=== PATIENT | female | born 1975 | race Caucasian/White ===

== ENCOUNTER → 2017-07-25 12:46 | Outpatient (CLI) | payer OTHER, SELFPAY ==
--- NOTE | 2017-07-25 12:51 | RAD_ITS ---
STUDY: X-RAY - THORACIC SPINE REASON FOR EXAM: Female, 42 years old. Mid back pain. TECHNIQUE: 3 view(s) of the thoracic spine were obtained. COMPARISON: Comparison is made with prior study dated July 22, 2010. FINDINGS: Normal kyphosis of the thoracic spine. There is no substantial scoliosis. Normal thoracic vertebrae and endplates. Normal disc space heights. The soft tissue structures are unremarkable. Electrodes from a pain stimulator device are seen. The tip is at the T7-T8 level. RAD/Thoracic Spine 3 Views IMPRESSION: Normal x-ray examination of the thoracic spine. Stable examination. Electronically Signed: Oniel Dupont MD at 8:38 EDT Tel [phone], Service support ,
== END ==
PROVIDERS: Family Provider Internal Medicine; PCP Internal Medicine; Visit Provider Anesthesiology Pain Medicine
DX: M54.6 Pain in thoracic spine (principal)
CPT/HCPCS: 72072

== ENCOUNTER → 2018-06-26 09:38 | Outpatient (CLI) | payer OTHER, SELFPAY ==
--- NOTE | 2018-06-26 10:00 | RAD_ITS ---
STUDY: X-RAY - SACRUM/COCCYX REASON FOR EXAM: Female, 43 years old. Low back pain with left leg numbness TECHNIQUE: 4 view(s) of the sacrum and coccyx were obtained. COMPARISON: None. FINDINGS: Postsurgical changes at L5-S1. No evidence of acute fracture. No destructive osseous lesion. Normal alignment. Spinal stimulator device noted near the coccyx tip. RAD/Sacrum-Coccyx min 2 Views IMPRESSION: As above Electronically Signed: Blue Mckeon DO at 9:46 EST Tel , Service support ,
--- NOTE | 2018-06-26 10:00 | RAD_ITS ---
STUDY: X-RAY - LUMBAR SPINE REASON FOR EXAM: Female, 43 years old. Low back pain TECHNIQUE: 3 view(s) of the lumbar spine were obtained. COMPARISON: None FINDINGS: Normal lumbar lordosis. There is no substantial scoliosis. There is a normal alignment of the vertebrae. Postsurgical change at L5-S1 with posterior fusion hardware. Artificial intervertebral disc spacer. Remaining levels appear within normal limits. There is no demonstrated fracture. Spinal stimulator device The soft tissue structures are unremarkable. RAD/Lumbar Spine 2 or 3 Views IMPRESSION: L5-S1 degenerative disc disease with postsurgical changes and artificial intervertebral disc spacer. Electronically Signed: Blue Mckeon DO at 9:45 EST Tel , Service support ,
[2018-06-26 11:19] LABS: Amphetamine Urine VISTA NEGATIVE (<1000 ng/mL); Barbiturate Urine VISTA NEGATIVE (< 200 ng/mL); Benzodiazepine Urine VISTA NEGATIVE (< 200 ng/mL); Cocaine Urine VISTA NEGATIVE (< 300 ng/mL); Ecstacy Urine VISTA NEGATIVE (< 500 ng/mL); Methadone Urine VISTA NEGATIVE (< 300 ng/mL); PCP Urine VISTA NEGATIVE (< 25 ng/mL); THC Urine VISTA NEGATIVE (< 50 ng/mL); Vista UDS pH Range 5
== END ==
PROVIDERS: Family Provider Internal Medicine; PCP Internal Medicine; Referring Provider Anesthesiology Pain Medicine; Visit Provider Anesthesiology Pain Medicine
DX: F11.20 Opioid dependence, uncomplicated (principal); M54.5 Low back pain; M79.605 Pain in left leg; W19.XXXA Unspecified fall, initial encounter
CPT/HCPCS: 72100; 72220; 80307

== ENCOUNTER → 2019-03-21 12:33 | Outpatient (CLI) | payer OTHER, SELFPAY ==
[2019-03-21 13:41] LABS: Amphetamine Urine VISTA NEGATIVE (<1000 ng/mL); Barbiturate Urine VISTA NEGATIVE (< 200 ng/mL); Benzodiazepine Urine VISTA NEGATIVE (< 200 ng/mL); Cocaine Urine VISTA NEGATIVE (< 300 ng/mL); Ecstacy Urine VISTA NEGATIVE (< 500 ng/mL); Methadone Urine VISTA NEGATIVE (< 300 ng/mL); PCP Urine VISTA NEGATIVE (< 25 ng/mL); THC Urine VISTA NEGATIVE (< 50 ng/mL); Vista UDS pH Range 6
== END ==
LOC: PR 12:35 → LAB 12:46
PROVIDERS: Family Provider Internal Medicine; PCP Internal Medicine; Referring Provider Anesthesiology Pain Medicine; Visit Provider Anesthesiology Pain Medicine
DX: F11.20 Opioid dependence, uncomplicated (principal)
CPT/HCPCS: 80307

== ENCOUNTER → 2019-09-17 14:04 | Outpatient (CLI) | payer OTHER, SELFPAY ==
[2019-09-17 16:36] LABS: Amphetamine Urine VISTA NEGATIVE (<1000 ng/mL); Barbiturate Urine VISTA NEGATIVE (< 200 ng/mL); Benzodiazepine Urine VISTA NEGATIVE (< 200 ng/mL); Cocaine Urine VISTA NEGATIVE (< 300 ng/mL); Ecstacy Urine VISTA NEGATIVE (< 500 ng/mL); Methadone Urine VISTA NEGATIVE (< 300 ng/mL); PCP Urine VISTA NEGATIVE (< 25 ng/mL); THC Urine VISTA NEGATIVE (< 50 ng/mL); Vista UDS pH Range 6
== END ==
PROVIDERS: PCP Internal Medicine; Referring Provider Anesthesiology Pain Medicine; Visit Provider Anesthesiology Pain Medicine
DX: F11.20 Opioid dependence, uncomplicated (principal)
CPT/HCPCS: 80307

== ENCOUNTER 2020-09-04 14:20 | Day surgery (SDC) | payer OTHER, SELFPAY ==
[2020-09-02 08:28] VITALS: BMI 22.4
[2020-09-04] VITALS (10 sets, daily range): BP systolic 122–144; BP diastolic 84–94; PULSE 73–96; RESP 16–18; TEMP 37.2–37.9; O2SAT 98–100; BMI 22.4
[2020-09-04] MEDS: Lactated Ringers 1,000 ML 100 ML IV (15:02)
--- NOTE | 2020-09-04 15:37 | RAD_ITS ---
STUDY: X-RAY - LUMBAR SPINE REASON FOR EXAM: Female, 45 years old. DISCOGRAM TECHNIQUE: 3 view(s) of the lumbar spine were obtained. COMPARISON: 09/02/2020 FINDINGS: Fluoroscopy the lumbar spine was utilized during the discogram.. RAD/Lumbar Spine 2 or 3 Views IMPRESSION: Fluoroscopy during discogram. Electronically Signed: Finn Carranza MD at 12:12 EDT Tel , Service support ,
[2020-09-04] MEDS: Lidocaine 0.5% (50 ml) 50 ML Vial (15:51)
[2020-09-04] MEDS: Triamcinolone Acetonide 40 MG/ML Vial (15:51)
[2020-09-04] MEDS: Acetaminophen 325 MG Tablet PO (16:37)
[2020-09-04] MEDS: oxyCODONE 5 MG Tablet PO (16:37)
== END 2020-09-04 17:49 ==
LOC: SDC 14:22 → AC 14:24
PROVIDERS: PCP Internal Medicine; Visit Provider Anesthesiology Pain Medicine
PROC: 3E0S3BZ Introduction of Anesthetic Agent into Epidural Space, Percutaneous Approach (ICD-10-PCS; CPT 62290; principal; 2020-09-04 15:55)
DX: M51.36 Other intervertebral disc degeneration, lumbar region (principal); M51.37 Other intervertebral disc degeneration, lumbosacral region; M47.896 Other spondylosis, lumbar region; M47.818 Spondylosis without myelopathy or radiculopathy, sacral and sacrococcygeal region; I10 Essential (primary) hypertension; F17.210 Nicotine dependence, cigarettes, uncomplicated; Z79.899 Other long term (current) drug therapy
CPT/HCPCS: 62290 ×2; 72100; 76000; J7120

== ENCOUNTER 2020-11-20 10:06 | Day surgery (SDC) | payer OTHER, SELFPAY ==
[2020-10-07 10:11] VITALS: BMI 22.4
[2020-11-20] VITALS (9 sets, daily range): BP systolic 122–155; BP diastolic 85–111; PULSE 72–98; RESP 16; TEMP 35.9–36.5; O2SAT 96–100; BMI 23.1
[2020-11-20] MEDS: Lactated Ringers 1,000 ML 100 ML IV ×2 (10:37→12:33)
[2020-11-20] MEDS: Lidocaine 0.5% (50 ml) 50 ML Vial (11:30)
== END 2020-11-20 14:07 | disposition home or self-care (01) ==
LOC: SDC 10:06 → AC 10:07
PROVIDERS: PCP Internal Medicine; Referring Provider Anesthesiology Pain Medicine; Visit Provider Anesthesiology Pain Medicine
PROC: (CPT 63688; principal; 2020-11-20 11:40)
DX: Z45.42 Encounter for adjustment and management of neurostimulator (principal); M96.1 Postlaminectomy syndrome, not elsewhere classified; Y84.8 Other medical procedures as the cause of abnormal reaction of the patient, or of later complication, without mention of misadventure at the time of the procedure; M51.36 Other intervertebral disc degeneration, lumbar region; F17.200 Nicotine dependence, unspecified, uncomplicated; Z79.899 Other long term (current) drug therapy; F32.9 Major depressive disorder, single episode, unspecified; G25.81 Restless legs syndrome; M51.37 Other intervertebral disc degeneration, lumbosacral region; M46.1 Sacroiliitis, not elsewhere classified; M47.812 Spondylosis without myelopathy or radiculopathy, cervical region
CPT/HCPCS: 63688; 87426; C9803; J7120; J2405

== ENCOUNTER 2021-01-05 05:21 | Inpatient (IN) | payer OTHER, SELFPAY ==
[2020-10-07 10:11] VITALS: BMI 22.4
--- NOTE | 2020-12-24 09:58 | EKG12_ITS ---
Test Reason : PREOP Blood Pressure : / mmHG Vent. Rate : 080 BPM Atrial Rate : 080 BPM P-R Int : 170 ms QRS Dur : 078 ms QT Int : 412 ms P-R-T Axes : 077 054 054 degrees QTc Int : 475 ms Normal sinus rhythm Normal ECG Confirmed by BRANDON MCKENZIE, RIZWAN ([id number]), photographic editor LIANA TERESA ([id number]) on 12/28/2020 8:24:45 AM Referred By: Jesus Agee Confirmed By:RIZWAN TAYLOR MD
[2020-12-28 09:58] LABS: Absolute Lymphocyte Count 2.43 X10^3/uL (0.83-4.51); Absolute Neutrophil Count 5.2 X10^3/uL (2.0-7.7); Basophil# 0.07 X10^3/uL; Basophil% 0.9 % (0-1); Eosinophil# 0.13 X10^3/uL; Eosinophils% 1.6 % (0-5); Hematocrit 40.3 % (37-47); Hemoglobin 12.8 g/dL (12.0-15.0); Lymphocyte # 2.43 X10^3/ul (0.83-4.51); Lymphocyte % 29.7 % (19-41); Mean Corp Hgb Conc 31.8 g/dL (32-36); Mean Corpuscular Hgb 31.5 pg (27.0-32.0); Mean Corpuscular Volume 99.3 fL (81-99); Mean Platelet Vol. 9.5 fl (6.2-12.0); Monocyte# 0.36 X10^3/uL; Monocyte% 4.4 % (0-10); NRBC Flagged by Analyzer 0 % (0-5); Neutrophil # 5.16 X10^3/uL (2.7-7.7); Neutrophil % 63.2 % (47-70); Platelet Count 414 K/mm3 (150-450); RBC Distribution Width CV 13.1 % (11.6-14.6); RBC Distribution Width SD 48.4 fl (35.1-43.9); Red Blood Count 4.06 M/mm3 (4.2-5.4); White Blood Count 8.2 K/mm3 (4.4-11.0)
[2020-12-28 10:07] LABS: Prothrombin Time (Protime)PT. 12.3 SECONDS (11.7-14.9)
[2020-12-28 10:11] LABS: Partial Thromboplast Time 30.7 Seconds (24.1-36.2)
[2020-12-28 10:47] LABS: Anion Gap 5 (5-15); BUN 6 mg/dL (7-18); BUN/Creat Ratio 10.8 RATIO (10-20); Calcium,Total 8.9 mg/dL (8.5-10.1); Chloride 109 mmol/L (98-107); Creatinine, Serum 0.55 mg/dL (0.55-1.02); EST Glomerular Filtration Rate 126 mL/min (>60); Est Glom Filt Rate - Afr Amer 152 mL/min (>60); Glucose 84 mg/dL (74-106); Potassium 3.7 mmol/L (3.5-5.1); Sodium Level 142 mmol/L (136-145)
[2020-12-28 10:49] LABS: AST(SGOT) 14 U/L (15-37); Alanine Aminotransfer ALT/SGPT 24 U/L (13-56); Albumin, Serum 3.9 g/dL (3.2-5.0); Alkaline Phosphatase 72 U/L (45-117); Bilirubin, Direct 0.09 mg/dL (0.00-0.30); Globulin 3.4 g/dL (2.2-4.2); Magnesium 1.9 mg/dL (1.6-2.6); Protein, Total 7.3 g/dL (6.4-8.2)
[2020-12-28 11:22] LABS: HIV - WCH Non-Reactive (Nonreactive); Hepatitis B Surface Antibody Reactive; Hepatitis C Antibody Non-Reactive (Nonreactive)
[2020-12-29 07:59] LABS: Hepatitis A AB, Total Negative (Negative)
--- NOTE | 2021-01-04 11:17 | HP.PCM_ITS ---
History and Physical Date of Admission: 01/05/21 [facility] [id number] [phone] OFFICE VISITDate of Service: 09/28/20 MR#:[id number]:[id number]: ALAINA CLEMENTE #:[id number] Provider:Dr. Jesus Agee DOAge/Sex: 45/F Location:[place]:Signed Intake Vital Signs 09/28/20 09:25 BMI 22.4 Intake Visit Reasons: Lumbar spine Allergies morphine Allergy (Severe, Verified 09/28/20 09:28) Itching meperidine Adverse Reaction (Intermediate, Verified 09/28/20 09:28) Other adhesive Adverse Reaction (Verified 09/28/20 09:28) Rash Medications diclofenac sodium [Voltaren] 100 g TP TID 03/01/13 [History Confirmed 09/28/20] oxycodone-acetaminophen 2 tab PO Q6H PRN PRN 03/01/13 [History Confirmed 09/28/20] tizanidine [Zanaflex] 4 mg PO Q8H 03/01/13 [History Confirmed 09/28/20] trazodone 100 mg PO QHS 03/01/13 [History Confirmed 09/28/20] lamotrigine [Lamictal] 150 mg PO DAILY 09/03/20 [History Confirmed 09/28/20] PFSH Medical History (Updated 09/28/20 @ 10:[address] Jesus Agee DO) History of stress test Status post insertion of nerve stimulator Surgical History (Updated 09/03/20 @ 13:37 by Asya Mallory) History of back surgery Hx of hysterectomy Social History Smoking Status: Current every day smoker HPI Lumbar spine Details: Parts of this documentation were recorded by a scribe, this documentation accurately reflects the service provided and the decisions made by me, Dr. Jesus Agee DO 09/28/20923. ALAINA CLEMENTE is a 45 year old F here today for F/u up. Dr. Danielle had a disco-gram now has swelling in that area increased pain. Patient states she completed a MEDROL dose johnna approx 2-3 weeks ago d/t the swelling and pain. Patient voiced the numbness and tingling with her left side has worsened since. Leticia returns for follow-up. She had her discography done at the L3-4 and L4-5 levels. I read 's report. She had congruent pain at the L4-5 level with extravasation of the contrast. At L3-4 there was no pain whatsoever. She appears to have a good fusion at L5-S1. This was done in 2003. I explained to Leticia and her that one of the problems that I am having is the fact that she is having to take 4 Percocets a day and has for 10 years. This makes it very difficult for pain control after surgery. And the other question is will we ever be able to take her off her pain medication. I will discuss this with and trying to find a solution so that I can do a 360 fusion at the L45 level. I explained her that she does not have a spinous process at 5 and I do not wish to remove the pedicle screws and plates if pos sible. Do so however I could put a device from the L4 area down to the S1 area and bypass removal of the hardware. She will come back and see me in 1 week. Coding Level of Care Code Off vis,est,level 2 Diagnoses DDD (degenerative disc disease), lumbar M51.36 Time Spent (min) 20 Assessment and Plan Assessment and Plan (1) DDD (degenerative disc disease), lumbar:
[2021-01-05] VITALS (15 sets, daily range): BP systolic 113–141; BP diastolic 73–98; PULSE 86–111; RESP 16–18; TEMP 35.8–36.7; O2SAT 95–100; BMI 24.5
[2021-01-05] MEDS: Acetaminophen 500 MG Tablet 1000 MG PO (06:14)
[2021-01-05 06:26] LABS: Bedside Glucose 85 mg/dL (70-110)
[2021-01-05] MEDS: Lactated Ringers 1,000 ML 100 ML IV ×3 (07:00→16:49)
[2021-01-05] MEDS: Cefazolin 2 GM in 0.9% Normal Saline 100 ML IV (07:45)
[2021-01-05] MEDS: THROMBIN (RECOMBINANT) 20,000 UNIT VIAL 20000 UNIT TOPICAL (08:35)
[2021-01-05] MEDS: Heparin 10,000 UNITS/10 ML Vial 10000 UNITS (08:35)
--- NOTE | 2021-01-05 08:55 | RAD_ITS ---
INDICATION: 360 FUSION, L4-5 EXAMINATION/TECHNIQUE: X-RAY - XR Spine Lumbar 1 View COMPARISON: 12/28/2020. FINDINGS: Single lateral image of the lumbar spine was obtained intraoperatively demonstrating localization of the L4-5 intervertebral disc space level. Bipedicular posterior internal fixation of the L5 and S1 vertebral body is visualized and is unremarkable prosthesis. Generator visualized with leads entering the spinal canal at the level of the L1-L2 intervertebral disc space. RAD/Spine 1 View Any Level IMPRESSION: Single lateral crosstable image of the lumbar spine demonstrates localization of the L4-5 intervertebral disc space level. Electronically Signed: Rito Garcia MD at 12:13 EDT Tel , Service support ,
--- NOTE | 2021-01-05 09:08 | RAD_ITS ---
STUDY: X-RAY - LUMBAR SPINE REASON FOR EXAM: Female, 45 years old. Post surgical evaluation after fusion. TECHNIQUE: A single lateral view(s) of the lumbar spine was obtained in the operating room. COMPARISON: 12/28/2020. FINDINGS: Stable posterior fusion at L5-S1 with intervertebral disc prosthesis. New anterior fusion at L4-5 with intervertebral disc prosthesis. Anatomic alignment and no complicating features. RAD/Spine 1 View Any Level IMPRESSION: Single lateral documentation intraoperative view of the lumbar spine as described. Electronically Signed: Kayden Koroma MD at 11:45 EDT , Service support ,
--- NOTE | 2021-01-05 10:27 | PCM.OPRPT ---
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 Agee and Dr. Vargas Driver/Refuse Collector: Ebony FABIAN Anesthesia: General endotracheal anesthesia administered by [facility] Estimated blood loss: 75 cc +40 cc of bone marrow aspirate Drains: None Complications: None Procedure: Patient was taken to the OR where she was placed under general endotracheal anesthesia she was then placed in the supine position on the operating table. A Moreau catheter was inserted. Neuro monitoring inserted all their leads and the patient. The abdomen was then prepped and draped in standard fashion. The surgical approach is described in Dr. Vargas's operative summary. Once Dr. Vargas had exposed the L4-5 space anteriorly and confirmed it with x-ray I removed the anterior annulus with a 10 blade. Then removed nucleus from within the disc space with pituitary rongeurs. I then released cartilage off both endplates and further removed nucleus using both ring curettes and bowl curettes. Again these were removed with pituitary all the way back to the posterior annulus. I then used a 6 mm cristi bur to flatten the space by opening the lateral sides to make it flat surface for the cage. We then took measurements for the cage and found that we needed a 12 mm 8 degree 25 x 35 cage. In the interim we placed a Jamshidi needle into the ASIS on the left side. 40 or 45 cc of bone marrow aspirate were then obtained and handed off to the industrial manufacturing technician in the room. She then spun down the BMA the stem cells concentrated them 8-10 times and gave them back to us in the OR. I then used the broach to broach the space repeatedly to have good bleeding endplate. Notes that are DBM strips were then soaked in the patient's own stem cells we then filled the cage with the DBM and tamped it into place and countersunk it a couple of millimeters. I then elevated the anterior longitudinal ligament and periosteum off of the lower left side of the bottom of L4 and the top of L5. A 25 mm plate was then applied and the first of 4 screws inserted after using an awl to punch the holes in all 4 points to open going to the bottom of L4 and 2 into the top of L5. We used 25 mm screws. Once the plate was in place we activated the locking mechanisms and were able to see the entire construct on x-ray and was found to be quite satisfactory. Lastly amnionic membrane was placed over the plate as it would be up against the a left iliac vessel. This prevents adhesions to the vessel. The closure is then described in Dr. Vargas's operative summary. The end of operative summary on Leticia Gordillo. This is Dr. Agee dictating.
--- NOTE | 2021-01-05 10:30 | OP.PCM_ITS ---
Problems Associated Problem List Diagnoses (1) DDD (degenerative disc disease), lumbar: Report of Operation Date of Procedure: 01/05/21 Pre-Operative Diagnosis: Degenerative disc disease Post-Operative Diagnosis: This same Type of Anesthesia: General/Regional Description of Procedure: Surgeon: Dr. Agee co-surgeon: Dr. Hussain Vargas Operation: 360 fusion L4-L5 with cage and BMA. Anterior plate placed with 2 screws in L4 to screws in L5 Anesthesia: General EBL: 75 cc Operation: Patient brought to the operating room. Underwent appropriate timeout consent. Underwent general anesthesia. All the appropriate monitoring lines were placed. Was prepped and draped in a sterile fashion. We did a left lower quadrant incision and dissected out onto the anterior fascia. We incised the fascia and extended just to the midline and then out laterally to the rectus into the obliques. We then raised up the fascia superior and inferior. We then got lateral to the rectus into the retroperitoneal plane. We then freed this up superior and inferior. As we went superior there was a little bit of the tear into the peritoneum. Main part of the peritoneum in the lower part over was all intact. We then put in the retractors. And did blunt dissection down towards the disc space. We retracted all the vessels medially. Large iliac vein branch divided between clips. Some smaller branches also divided between clips. We then freed up and confirmed under x-ray we are in the L4-L5 disc space. Patient underwent the discectomy. Freed up along the entire space. Freed up along the L4 and L5 for placement of the plate. We then aspirated bone marrow. Completed the dissection and put into trials. We then put in a broach. And put in the small cage. This was in good position. We then put the plate on top with 2 screws in L4 and 2 screws in the L5. Put a film over this and then released the retractors. Completion x-ray showed this all in good position. There is good h emostasis. We then closed the fascia with running strata fix. Repairing part of the peritoneum. We then closed with 2-0 and 3-0 Vicryl's. Monocryl Dermabond for the skin. Patient will then be flipped over and the rest will all be done posterior and be done separately.
--- NOTE | 2021-01-05 13:14 | PCM.OPRPT ---
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 Agee senior office support assistant sosa: Ebony FABIAN Anesthesia: Endotracheal anesthesia administered by [facility] Estimated blood loss: 75 cc Drains: None Complications: None Procedure: Once the anterior surgery was completely finished the patient was then placed in the prone position on the Ryan frame. After proper positioning with care to protect her bony prominences her breasts her ulnar nerves of both elbows the brachial plexus bilaterally in the cervical spine and facial features the back was prepped and draped in standard fashion. I then made a longitudinal incision centered over the old incision. Subcutaneous tissues were incised the length of the skin incision down to the lumbar fascia. Using cautery I opened the lumbar fascia first to the left of the spinous process of L4 as the L5 spinous process had been removed in the previous surgery back in 2003. In this fashion I was able to dissect down to identify the lamina of L4 on the left. I then extended my incision in both directions careful not to violate the dura that was wide open now. Identified the top pedicle screw on the left side. Then dissected down below the pedicle screw head identifying the transverse process with the bone mass from the old fusion. I then moved out and removed paravertebral muscles off part of the lamina of L3 and identified the lamina and then it went over the facet until I found the transverse process of L for on the left side. We thoroughly irrigated and packed it on the opposite side we did exactly the same thing elevating peritoneal muscles off the lamina first of 4 and the lamina of 3 and carried the dissection out over the facet and the pedicle screw on the right side of L5 cauterized down until I found the transverse process and bone mass from the original fusion. And that the same thing with the transverse process of L4 on the right exposing it and elevating it thorough irrigation was carried out I then used a bur to bur both transverse processes on the left and both on the right. We then used demineralized bone matrix that was soaked in the patient's own stem cells placed it from the transverse process of 5 to the transverse process of 4 on both sides. We had good hemostasis by this point and it was not felt that we needed a drain. We then closed the lumbar fascia using [id number] suture with #1 Vicryl. We then closed the subcutaneous tissues in layers 2-0 Vicryl and 0 Vicryl in interrupted fashion and the skin was approximated using skin clips. Sterile dressings were then applied patient was then recovered in the OR she was moved to her hospital bed and taken to recovery in satisfactory condition. This interoperative summary on Leticia Gordillo. This is Dr. Agee dictating.
[2021-01-05] MEDS: oxyCODONE 5 MG Tablet PO ×2 (16:53→21:50)
[2021-01-05] MEDS: Cefazolin 1 GM/50 ML BAG IV (17:12)
--- NOTE | 2021-01-05 18:16 | PCM.PN.HOSP ---
Subjective Subjective 45-year-old female sent to the hospital for elective back surgery and she is status post bilateral in situ fusion of L4-5 secondary to disc disruption syndrome with L4-5 with intractable low back pain and instability. She has been on significant narcotics for the last 10 years because of this. Currently feeling okay after surgery. Objective Data Objective Data Vital Signs: Vital Signs Temp Pulse Resp BP Pulse Ox 97.9 F 90 18 119/80 95 01/05/21 16:21 01/05/21 16:37 01/05/21 16:21 01/05/21 16:21 01/05/21 16:21 Oxygen Flow Rate (L/min) 2 Oxygen Delivery Method Ambu-Bag Weight: 138 lb 10.732 oz Body Mass Index (BMI) 24.5 Intake & Output: Intake and Output for Last 24 Hours 01/04/21 01/05/21 01/06/21 03:59 03:59 03:59 Intake Total 5156.83 / 5156.83 Balance 5156.83 / 5156.83 Lab / Micro Data Result Diagrams: 12/28/20 09:36 12/28/20 09:36 Labs: Laboratory Results - last 24 hr 01/05/21 06:00: POC Glucose 85 Micro: Microbiology 01/04/21 09:45 Interface Orders SARS-CoV-2 Antigen (Rapid) - Final 12/28/20 09:36 Swab (Method) Nasal Screen MRSA/MSSA - Final Radiography Diagnostic Testing: Radiology Impression Spine X-Ray 01/05/21 08:55 IMPRESSION: Single lateral crosstable image of the lumbar spine demonstrates localization of the L4-5 intervertebral disc space level. Electronically Signed: Rito Garcia MD at 12:13 EDT Tel , Service support , Spine X-Ray 01/05/21 09:08 IMPRESSION: Single lateral documentation intraoperative view of the lumbar spine as described. Electronically Signed: Kayden Koroma MD at 11:45 EDT , Service support , Physical Exam Const alert, oriented x3 and no apparent distress General Appearance: cooperative HEENT normocephalic Mouth: dry mucous membranes Eyes PERRL, EOMs intact bilaterally and conjunctivae normal Neck supple and no JVD Resp normal respiratory effort, no retractions, no use of accessory muscles and clear to auscultation bilaterally Auscultation: Negative for crackles, rales, rhonchi or wheezes Cardio regular rate, regular rhythm, S1 normal heart sound, S2 normal heart sound and no murmurs GI soft to palpation, non-tender and non-distended; Negative for hepatosplenomegaly Extremity no clubbing, cyanosis or edema Skin no rashes or lesions noted Skin Narrative: Incision CDI Neuro no focal motor deficits and no sensory deficits noted Psych affect normal Appearance: appropriate Assessment & Plan Assessment/Plan (1) DDD (degenerative disc disease), lumbar: PLAN: 1. Degenerative disc disease status post L4-5 fusion on 01/05/2021 -Continue pain management per primary -PT/OT 2. Anxiety/depression -Continue with Lamictal and trazodone -Continue with Vistaril DVT: SCD Charges/Coding Visit Charges Inpatient E&M: 51207 Subs Hosp L2
[2021-01-05] MEDS: diazePAM 5 MG Tablet PO (20:30)
[2021-01-05] MEDS: traMADol 50 MG Tablet PO ×2 (20:31→21:51)
[2021-01-05] MEDS: Famotidine 20 MG Tablet PO (21:52)
[2021-01-05] MEDS: lamoTRIgine 150 MG Tablet PO (21:52)
[2021-01-05] MEDS: Senna/Docusate Sodium 1 Tablet 2 TABLET PO (21:52)
[2021-01-05] MEDS: traZODone 100 MG Tablet PO (21:52)
[2021-01-05] MEDS: Gabapentin 300 MG Capsule PO (21:52)
[2021-01-06] VITALS (8 sets, daily range): BP systolic 92–115; BP diastolic 51–77; PULSE 80–102; RESP 14–18; TEMP 36.6–37; O2SAT 94–96
[2021-01-06] MEDS: Cefazolin 1 GM/50 ML BAG IV (01:27)
[2021-01-06] MEDS: oxyCODONE 5 MG Tablet PO ×4 (02:20→18:43)
[2021-01-06] MEDS: 0.9% NaCl Peripheral Flush Adult/Peds IV ×3 (05:32→13:26)
[2021-01-06] MEDS: Gabapentin 300 MG Capsule PO ×3 (05:32→22:15)
[2021-01-06] MEDS: diazePAM 5 MG Tablet PO ×3 (05:32→22:14)
[2021-01-06] MEDS: traMADol 50 MG Tablet PO ×2 (05:32→20:18)
--- NOTE | 2021-01-06 08:43 | PCM.PROGNOTE ---
Subjective Subjective Patient doing well status post L4-L5 360 fusion. Some nausea vomiting this morning. Sitting up in chair with pain adequately controlled. Objective Data Objective Data Vital Signs: Vital Signs Temp Pulse Resp BP Pulse Ox 98.6 F 90 16 99/63 96 01/06/21 07:29 01/06/21 07:30 01/06/21 07:29 01/06/21 07:29 01/06/21 07:29 Oxygen Flow Rate (L/min) 2 Oxygen Delivery Method Nasal Cannula Weight: 138 lb 10.732 oz Body Mass Index (BMI) 24.5 Intake & Output: Intake and Output for Last 24 Hours 01/04/21 01/05/21 01/06/21 23:59 23:59 23:59 Intake Total 5206.83 / 5806.83 3150 / 3150 Output Total 750 / 2300 2550 / 2550 Balance 4456.83 / 3506.83 600 / 600 Lab / Micro Data Result Diagrams: 12/28/20 09:36 12/28/20 09:36 Micro: Microbiology 01/04/21 09:45 Interface Orders SARS-CoV-2 Antigen (Rapid) - Final 12/28/20 09:36 Swab (Method) Nasal Screen MRSA/MSSA - Final Radiography Diagnostic Testing: Radiology Impression Spine X-Ray 01/05/21 08:55 IMPRESSION: Single lateral crosstable image of the lumbar spine demonstrates localization of the L4-5 intervertebral disc space level. Electronically Signed: Rito Garcia MD at 12:13 EDT Tel , Service support , Spine X-Ray 01/05/21 09:08 IMPRESSION: Single lateral documentation intraoperative view of the lumbar spine as described. Electronically Signed: Kayden Koroma MD at 11:45 EDT , Service support , Physical Exam Narrative Patient awake alert oriented Mild discomfort Afebrile vital signs stable Abdomen appears soft Assessment & Plan Assessment/Plan (1) DDD (degenerative disc disease), lumbar: PLAN: Patient status post L4-5 360 fusion. Appears to be doing well. We will continue to follow as needed.
[2021-01-06] MEDS: Ondansetron 4 MG/2 ML Vial IV (09:54)
[2021-01-06] MEDS: Famotidine 20 MG Tablet PO ×2 (10:53→22:15)
[2021-01-06] MEDS: Senna/Docusate Sodium 1 Tablet 2 TABLET PO ×2 (10:53→22:15)
--- NOTE | 2021-01-06 11:05 | CASEMGMT ---
JANES SANCHEZ Assessment: Face to Face with pt for initial transition planning/care coordination assessment. RN LAURA introduced self and role at [facility], pt voices understanding and consents to assessment. Pt is A/O x4 and answers all questions appropriately at this time. Pt sitting up in chair with at bedside. Care providers, pharmacy, and demographics verified/updated. Admitting Dx: ALIF/PLIF 360 PCP:Lizbeth Specialists:Lolis, pain mgmt; Anuel, spine surgeon; Whit, psychiatry Preferred Pharmacy: [facility] Retail Insurance: [employer] Prescription Benefit: yes LW/HPOA: Pt denies having LW/DPOA and denies need for info regarding AD. LNOK: Robert Gordillo, Living Arrangements: Pt lives with and dtr who is in college, in a two story house with 3 steps to enter with a rail. Pt has first floor setup. Pt is typically I in ADL's and denies concerns at home. Transportation: Pt drives self and denies concerns with transportation. DME/HHC: Pt has a FWW loaned from a family member for this surgery,no other DME. Pt denies any hx of HHC. Pt states no concerns with going home at time of dc. Pt states no further concerns/needs. CM to follow. Advised pt to ask CM if any further question/concerns/needs arise, voices understanding. Pt Goal: Home Plan: Home
--- NOTE | 2021-01-06 12:01 | PCM.PN.HOSP ---
Subjective Subjective No issues overnight, this morning she has a little bit of a GI upset with some nausea. Denies any severe back pain from surgery but she has some achiness around the incisions otherwise feels okay. Pain is controlled Objective Data Objective Data Vital Signs: Vital Signs Temp Pulse Resp BP Pulse Ox 98.5 F 102 H 15 93/51 L 96 01/06/21 11:55 01/06/21 11:55 01/06/21 11:55 01/06/21 11:55 01/06/21 11:55 Oxygen Flow Rate (L/min) 2 Oxygen Delivery Method Room Air Weight: 138 lb 10.732 oz Body Mass Index (BMI) 24.5 Intake & Output: Intake and Output for Last 24 Hours 01/05/21 01/06/21 01/07/21 03:59 03:59 03:59 Intake Total 7856.83 / 7856.83 980 / 980 Output Total 2300 / 2300 1650 / 1650 Balance 5556.83 / 5556.83 -670 / -670 Lab / Micro Data Result Diagrams: 12/28/20 09:36 12/28/20 09:36 Micro: Microbiology 01/04/21 09:45 Interface Orders SARS-CoV-2 Antigen (Rapid) - Final 12/28/20 09:36 Swab (Method) Nasal Screen MRSA/MSSA - Final Radiography Diagnostic Testing: Radiology Impression Spine X-Ray 01/05/21 08:55 IMPRESSION: Single lateral crosstable image of the lumbar spine demonstrates localization of the L4-5 intervertebral disc space level. Electronically Signed: Rito Garcia MD at 12:13 EDT Tel , Service support , Physical Exam Const alert, oriented x3 and no apparent distress General Appearance: cooperative HEENT normocephalic Eyes PERRL, EOMs intact bilaterally and conjunctivae normal Neck supple and no JVD Resp normal respiratory effort, no retractions, no use of accessory muscles and clear to auscultation bilaterally Auscultation: Negative for crackles, rales, rhonchi or wheezes Cardio regular rate, regular rhythm, S1 normal heart sound, S2 normal heart sound and no murmurs GI soft to palpation, non-tender and non-distended; Negative for hepatosplenomegaly Extremity no clubbing, cyanosis or edema Skin no rashes or lesions noted Skin Narrative: Incision CDI Neuro no focal motor deficits and no sensory deficits noted Psych affect normal Appearance: appropriate Assessment & Plan Assessment/Plan (1) DDD (degenerative disc disease), lumbar: PLAN: 1. Degenerative disc disease status post L4-5 fusion on 01/05/2021/chronic back pain -Continue pain management per primary -PT/OT -Discharge planning per primary 2. Anxiety/depression -Continue with Lamictal and trazodone -Continue with Vistaril DVT: SCD Charges/Coding Visit Charges Inpatient E&M: 25430 Subs Hosp L2
--- NOTE | 2021-01-06 12:14 | NURSING ---
Dr. Anuel calderon.
--- NOTE | 2021-01-06 13:01 | PCM.PN.ORT ---
Objective Data Objective Data Vital Signs: Vital Signs Temp Pulse Resp BP Pulse Ox 98.5 F 102 H 15 93/51 L 96 01/06/21 11:55 01/06/21 11:57 01/06/21 11:57 01/06/21 11:55 01/06/21 11:55 Oxygen Flow Rate (L/min) 2 Oxygen Delivery Method Room Air Weight: 138 lb 10.732 oz Body Mass Index (BMI) 24.5 Intake & Output: Intake and Output for Last 24 Hours 01/04/21 01/05/21 01/06/21 23:59 23:59 23:59 Intake Total 5206.83 / 5806.83 3630 / 3630 Output Total 750 / 2300 3200 / 3200 Balance 4456.83 / 3506.83 430 / 430 Lab / Micro Data Result Diagrams: 12/28/20 09:36 12/28/20 09:36 Micro: Microbiology 01/04/21 09:45 Interface Orders SARS-CoV-2 Antigen (Rapid) - Final 12/28/20 09:36 Swab (Method) Nasal Screen MRSA/MSSA - Final Procedure Criteria Elective Risks - COVID COVID Risk Discussion: Postop day #1 1. The patient has no complaints at this time. She does admit that her back hurts significantly as does her abdomen. I told her that I would like to give her some Dilaudid however we are afraid to as her blood pressure is little on the low side. We talked to the hospitalist and they wanted to start the IV again and pump her volume up. Her dressings are dry. Neurologically she is intact. Progress is satisfactory.
[2021-01-06] MEDS: Lactated Ringers 1,000 ML 125 ML IV ×2 (13:25→20:18)
[2021-01-06] MEDS: hydrOXYzine PAM 25 MG Capsule PO (17:09)
[2021-01-06] MEDS: Acetaminophen 500 MG Tablet 1000 MG PO (17:09)
[2021-01-06] MEDS: lamoTRIgine 150 MG Tablet PO (22:15)
[2021-01-06] MEDS: traZODone 100 MG Tablet PO (22:15)
--- NOTE | 2021-01-06 22:36 | PCS.PANDOC ---
PANDEMIC DOCUMENTATION INITIATED: Date: 12/21/2020 Time: 190
[2021-01-07 00:36] VITALS: BP 108/68; PULSE 83; RESP 18; TEMP 36.6; O2SAT 94
[2021-01-07] MEDS: oxyCODONE 5 MG Tablet PO ×4 (00:40→21:07)
[2021-01-07] MEDS: Lactated Ringers 1,000 ML 125 ML IV ×3 (04:15→20:51)
[2021-01-07] MEDS: traMADol 50 MG Tablet PO ×3 (04:19→18:37)
[2021-01-07] MEDS: diazePAM 5 MG Tablet PO ×3 (04:19→18:37)
[2021-01-07 05:51] VITALS: BP 103/53; PULSE 98; RESP 18; TEMP 36.7; O2SAT 96
[2021-01-07] MEDS: Gabapentin 300 MG Capsule PO ×3 (05:56→21:04)
[2021-01-07] MEDS: hydrOXYzine PAM 25 MG Capsule PO (06:26)
[2021-01-07] MEDS: Ondansetron 4 MG/2 ML Vial IV (06:26)
[2021-01-07] MEDS: 0.9% NaCl Peripheral Flush Adult/Peds IV (06:26)
[2021-01-07 06:29] LABS: Absolute Neutrophil Count 7.7 X10^3/uL (2.0-7.7); Basophil# 0.03 X10^3/uL; Basophil% 0.3 % (0-1); Eosinophil# 0.06 X10^3/uL; Eosinophils% 0.6 % (0-5); Hematocrit 30.8 % (37-47); Hemoglobin 9.7 g/dL (12.0-15.0); Lymphocyte % 15.8 % (19-41); Mean Corp Hgb Conc 31.5 g/dL (32-36); Mean Corpuscular Hgb 31.5 pg (27.0-32.0); Mean Platelet Vol. 10.2 fl (6.2-12.0); Monocyte# 0.77 X10^3/uL; Monocyte% 7.6 % (0-10); NRBC Flagged by Analyzer 0 % (0-5); Neutrophil # 7.65 X10^3/uL (2.7-7.7); Neutrophil % 75.3 % (47-70); Platelet Count 268 K/mm3 (150-450); RBC Distribution Width CV 13.1 % (11.6-14.6); RBC Distribution Width SD 47.7 fl (35.1-43.9); Red Blood Count 3.08 M/mm3 (4.2-5.4); White Blood Count 10.2 K/mm3 (4.4-11.0)
[2021-01-07 06:55] LABS: Anion Gap 3 (5-15); BUN 3 mg/dL (7-18); BUN/Creat Ratio 8.7 RATIO (10-20); Calcium,Total 8.1 mg/dL (8.5-10.1); Chloride 105 mmol/L (98-107); Creatinine, Serum 0.34 mg/dL (0.55-1.02); EST Glomerular Filtration Rate 218 mL/min (>60); Est Glom Filt Rate - Afr Amer 264 mL/min (>60); Estimated Creatinine Clearance 172.85 ml/min; Glucose 94 mg/dL (74-106); Potassium 3.4 mmol/L (3.5-5.1); Sodium Level 138 mmol/L (136-145)
[2021-01-07] MEDS: Potassium Chloride Oral Tablet 20 MEQ 40 MEQ PO (08:12)
--- NOTE | 2021-01-07 09:04 | PCM.PN.HOSP ---
Subjective Subjective Doing well, still has some nausea and bloating. Has not had a bowel movement. Objective Data Objective Data Vital Signs: Vital Signs Temp Pulse Resp BP Pulse Ox 98.1 F 98 18 103/53 L 96 01/07/21 05:51 01/07/21 05:51 01/07/21 05:51 01/07/21 05:51 01/07/21 05:51 Oxygen Flow Rate (L/min) 2 Oxygen Delivery Method Nasal Cannula Weight: 138 lb 10.732 oz Body Mass Index (BMI) 24.5 Intake & Output: Intake and Output for Last 24 Hours 01/06/21 01/07/21 01/08/21 03:59 03:59 03:59 Intake Total 7856.83 / 7856.83 2140.42 / 2140.42 1243.75 / 1243.75 Output Total 2300 / 2300 1850 / 1850 500 / 500 Balance 5556.83 / 5556.83 290.42 / 290.42 743.75 / 743.75 Lab / Micro Data Result Diagrams: 01/07/21 05:54 01/07/21 05:54 Labs: Laboratory Results - last 24 hr 01/07/21 05:54: WBC 10.2, RBC 3.08 L, Hgb 9.7 L, Hct 30.8 L, MCV 100.0 H, MCH 31.5, MCHC 31.5 L, RDW Std Deviation 47.7 H, RDW Coeff of Cecille 13.1, Plt Count 268, MPV 10.2, Immature Gran % (Auto) 0.400, Neut % (Auto) 75.3 H, Lymph % (Auto) 15.8 L, [place] % (Auto) 7.6, Eos % (Auto) 0.6, Baso % (Auto) 0.3, Absolute Neuts (auto) 7.7, Absolute Lymphs (auto) 1.60, Nucleated RBC % 0 01/07/21 05:54: Sodium 138, Potassium 3.4 L, Chloride 105, Carbon Dioxide 30.0, Anion Gap 3 L, BUN 3 L, Creatinine 0.34 L, Estim Creat Clear Calc 172.85, Est GFR (MDRD) Af Amer 264, Est GFR (MDRD) Non-Af 218, BUN/Creatinine Ratio 8.7 L, Glucose 94, Calcium 8.1 L Micro: Microbiology 01/04/21 09:45 Interface Orders SARS-CoV-2 Antigen (Rapid) - Final 12/28/20 09:36 Swab (Method) Nasal Screen MRSA/MSSA - Final Physical Exam Const alert, oriented x3 and no apparent distress General Appearance: cooperative HEENT normocephalic Eyes PERRL, EOMs intact bilaterally and conjunctivae normal Neck supple and no JVD Resp normal respiratory effort, no retractions, no use of accessory muscles and clear to auscultation bilaterally Auscultation: Negative for crackles, rales, rhonchi or wheezes Cardio regular rate, regular rhythm, S1 normal heart sound, S2 normal heart sound and no murmurs GI soft to palpation and non-tender; Negative for hepatosplenomegaly Inspection: abdominal distention Extremity no clubbing, cyanosis or edema Skin no rashes or lesions noted Skin Narrative: Incision CDI Neuro no focal motor deficits and no sensory deficits noted Psych affect normal Appearance: appropriate Assessment & Plan Assessment/Plan (1) DDD (degenerative disc disease), lumbar: PLAN: 1. Degenerative disc disease status post L4-5 fusion on 01/05/2021/chronic back pain/ileus -Continue pain management per primary -PT/OT -It does appear at this time that she does have an ileus, encouraged ambulation and getting out of bed as well as maintaining a clear liquid diet. -Discharge planning per primary 2. Anxiety/depression -Continue with Lamictal and trazodone -Continue with Vistaril We will follow peripherally DVT: SCD Charges/Coding Visit Charges Inpatient E&M: 85188 Subs Hosp L2
[2021-01-07 09:36] VITALS: BP 101/62; PULSE 90; RESP 16; TEMP 36.6; O2SAT 94
[2021-01-07 09:36] LABS: Magnesium 1.6 mg/dL (1.6-2.6); Phosphorus 2.7 mg/dL (2.5-4.9)
[2021-01-07] MEDS: Senna/Docusate Sodium 1 Tablet 2 TABLET PO ×2 (09:46→21:04)
[2021-01-07] MEDS: Acetaminophen 500 MG Tablet 1000 MG PO ×2 (09:46→21:07)
[2021-01-07] MEDS: Famotidine 20 MG Tablet PO ×2 (09:46→21:05)
[2021-01-07 14:06] VITALS: BP 112/68; PULSE 98; RESP 16; TEMP 36.7; O2SAT 94
--- NOTE | 2021-01-07 14:38 | PN.ORTHO_ITS ---
Objective Data Objective Data Vital Signs: Vital Signs Temp Pulse Resp BP Pulse Ox 98.0 F 98 16 112/68 94 01/07/21 14:06 01/07/21 14:06 01/07/21 14:06 01/07/21 14:06 01/07/21 14:06 Oxygen Flow Rate (L/min) 2 Oxygen Delivery Method Room Air Weight: 138 lb 10.732 oz Body Mass Index (BMI) 24.5 Intake & Output: Intake and Output for Last 24 Hours 01/05/21 01/06/21 01/07/21 23:59 23:59 23:59 Intake Total 5206.83 / 5806.83 4790.42 / 4790.42 2243.75 / 2243.75 Output Total 750 / 2300 3400 / 3400 500 / 500 Balance 4456.83 / 3506.83 1390.42 / 1390.42 1743.75 / 1743.75 Lab / Micro Data Result Diagrams: 01/07/21 05:54 01/07/21 05:54 Labs: Laboratory Results - last 24 hr 01/07/21 05:54: WBC 10.2, RBC 3.08 L, Hgb 9.7 L, Hct 30.8 L, MCV 100.0 H, MCH 31.5, MCHC 31.5 L, RDW Std Deviation 47.7 H, RDW Coeff of Cecille 13.1, Plt Count 268, MPV 10.2, Immature Gran % (Auto) 0.400, Neut % (Auto) 75.3 H, Lymph % (Auto) 15.8 L, [place] % (Auto) 7.6, Eos % (Auto) 0.6, Baso % (Auto) 0.3, Absolute Neuts (auto) 7.7, Absolute Lymphs (auto) 1.60, Nucleated RBC % 0 01/07/21 05:54: Sodium 138, Potassium 3.4 L, Chloride 105, Carbon Dioxide 30.0, Anion Gap 3 L, BUN 3 L, Creatinine 0.34 L, Estim Creat Clear Calc 172.85, Est GFR (MDRD) Af Amer 264, Est GFR (MDRD) Non-Af 218, BUN/Creatinine Ratio 8.7 L, Glucose 94, Calcium 8.1 L 01/07/21 05:54: Phosphorus 2.7, Magnesium 1.6 Micro: Microbiology 01/04/21 09:45 Interface Orders SARS-CoV-2 Antigen (Rapid) - Final 12/28/20 09:36 Swab (Method) Nasal Screen MRSA/MSSA - Final Procedure Criteria Elective Risks - COVID COVID Risk Discussion: Postop day #2. Patient is left buttocks pain is gone and she states that she feels better today than yesterday. She still has a bit of a bloated abdomen even though she has good bowel sounds now and she is having flatulence we will still continue clear liquids until tomorrow. Dressing is dry on the back it was changed yesterday. Anterior dressing is also dry. Neurologically she is intact. Progress is quite satisfactory. He may go home tomorrow perhaps.
[2021-01-07] MEDS: Nicotine Polacrilex 2 MG GUM PO (15:48)
[2021-01-07 21:01] VITALS: BP 111/64; PULSE 92; RESP 16; TEMP 36.8; O2SAT 96
[2021-01-07] MEDS: traZODone 100 MG Tablet PO (21:04)
[2021-01-07] MEDS: lamoTRIgine 150 MG Tablet PO (21:04)
[2021-01-08] VITALS (7 sets, daily range): BP systolic 92–112; BP diastolic 58–74; PULSE 86–103; RESP 16; TEMP 36.7–37.1; O2SAT 92–96
[2021-01-08] MEDS: Nicotine Polacrilex 2 MG GUM PO ×2 (00:14→09:06)
[2021-01-08] MEDS: traMADol 50 MG Tablet PO ×3 (00:49→18:10)
[2021-01-08] MEDS: diazePAM 5 MG Tablet PO ×3 (00:49→18:09)
[2021-01-08] MEDS: oxyCODONE 5 MG Tablet PO ×5 (02:16→20:27)
[2021-01-08] MEDS: Ondansetron 4 MG/2 ML Vial IV (03:31)
[2021-01-08] MEDS: Lactated Ringers 1,000 ML 125 ML IV ×3 (05:05→23:44)
[2021-01-08] MEDS: Gabapentin 300 MG Capsule PO ×3 (05:05→21:54)
[2021-01-08] MEDS: Acetaminophen 500 MG Tablet 1000 MG PO ×3 (06:20→23:43)
[2021-01-08] MEDS: Senna/Docusate Sodium 1 Tablet 2 TABLET PO ×2 (09:05→21:54)
[2021-01-08] MEDS: Famotidine 20 MG Tablet PO ×2 (09:05→21:54)
[2021-01-08 09:46] LABS: Absolute Lymphocyte Count 2.03 X10^3/uL (0.83-4.51); Absolute Neutrophil Count 5.4 X10^3/uL (2.0-7.7); Basophil# 0.04 X10^3/uL; Basophil% 0.5 % (0-1); Eosinophil# 0.15 X10^3/uL; Eosinophils% 1.8 % (0-5); Hematocrit 28.2 % (37-47); Lymphocyte # 2.03 X10^3/ul (0.83-4.51); Lymphocyte % 24.3 % (19-41); Mean Corp Hgb Conc 31.9 g/dL (32-36); Mean Corpuscular Hgb 31.9 pg (27.0-32.0); Mean Platelet Vol. 9.6 fl (6.2-12.0); Monocyte# 0.67 X10^3/uL; NRBC Flagged by Analyzer 0 % (0-5); Neutrophil # 5.43 X10^3/uL (2.7-7.7); POSITIVE MORPHOLOGY YES; Platelet Count 249 K/mm3 (150-450); RBC Distribution Width CV 12.8 % (11.6-14.6); Red Blood Count 2.82 M/mm3 (4.2-5.4); White Blood Count 8.4 K/mm3 (4.4-11.0)
[2021-01-08 09:47] LABS: Differential Indicated SCAN CRITERIA MET
[2021-01-08 10:25] LABS: Hypochromasia 1+; Macrocytosis 1+; Platelet Estimate ADEQUATE (ADEQ)
[2021-01-08 10:29] LABS: Anion Gap 1 (5-15); BUN 4 mg/dL (7-18); Calcium,Total 8.4 mg/dL (8.5-10.1); Chloride 104 mmol/L (98-107); EST Glomerular Filtration Rate 182 mL/min (>60); Est Glom Filt Rate - Afr Amer 221 mL/min (>60); Estimated Creatinine Clearance 146.92 ml/min; Glucose 78 mg/dL (74-106); Potassium 3.2 mmol/L (3.5-5.1); Sodium Level 136 mmol/L (136-145)
[2021-01-08] MEDS: Potassium Chloride Oral Tablet 20 MEQ 60 MEQ PO (14:58)
--- NOTE | 2021-01-08 15:26 | CASEMGMT ---
[facility] regarding pt percocet and if is aware that pt sees for pain mgmt. Spoke with , he is aware and he still would like the script to be filled. Notified Cindy in pharmacy.
--- NOTE | 2021-01-08 15:52 | PCM.PN.ORT ---
Objective Data Objective Data Vital Signs: Vital Signs Temp Pulse Resp BP Pulse Ox 98.2 F 90 16 100/62 92 01/08/21 15:13 01/08/21 15:13 01/08/21 15:13 01/08/21 15:13 01/08/21 15:13 Oxygen Flow Rate (L/min) 1 Oxygen Delivery Method Room Air Weight: 138 lb 10.732 oz Body Mass Index (BMI) 24.5 Intake & Output: Intake and Output for Last 24 Hours 01/06/21 01/07/21 01/08/21 23:59 23:59 23:59 Intake Total 4790.42 / 4790.42 3243.75 / 3243.75 2765.83 / 2765.83 Output Total 3400 / 3400 500 / 500 450 / 450 Balance 1390.42 / 1390.42 2743.75 / 2743.75 2315.83 / 2315.83 Lab / Micro Data Result Diagrams: 01/08/21 09:36 01/08/21 09:36 Labs: Laboratory Results - last 24 hr 01/08/21 09:36: WBC 8.4, RBC 2.82 L, Hgb 9.0 L, Hct 28.2 L, MCV 100.0 H, MCH 31.9, MCHC 31.9 L, RDW Std Deviation 47.0 H, RDW Coeff of Cecille 12.8, Plt Count 249, MPV 9.6, Immature Gran % (Auto) 0.400, Neut % (Auto) 65.0, Lymph % (Auto) 24.3, [place] % (Auto) 8.0, Eos % (Auto) 1.8, Baso % (Auto) 0.5, Absolute Neuts (auto) 5.4, Absolute Lymphs (auto) 2.03, Nucleated RBC % 0, Platelet Estimate ADEQUATE, Hypochromasia 1+, Macrocytosis 1+ 01/08/21 09:36: Sodium 136, Potassium 3.2 L, Chloride 104, Carbon Dioxide 31.0, Anion Gap 1 L, BUN 4 L, Creatinine 0.40 L, Estim Creat Clear Calc 146.92, Est GFR (MDRD) Af Amer 221, Est GFR (MDRD) Non-Af 182, BUN/Creatinine Ratio 10.0, Glucose 78, Calcium 8.4 L Micro: Microbiology 01/04/21 09:45 Interface Orders SARS-CoV-2 Antigen (Rapid) - Final 12/28/20 09:36 Swab (Method) Nasal Screen MRSA/MSSA - Final Procedure Criteria Elective Risks - COVID COVID Risk Discussion: Postop day #3. Patient complains of some significant back pain. Apparently she has some issues with potassium and magnesium and she is being treated for that by the hospitalist. She wanted to go home today however I asked her to stay 1 more day until they get the levels in the normal range. Her dressing is dry. Hopefully I will be able to discharge her tomorrow.
[2021-01-08] MEDS: traZODone 100 MG Tablet PO (21:54)
[2021-01-08] MEDS: lamoTRIgine 150 MG Tablet PO (21:55)
[2021-01-09] MEDS: diazePAM 5 MG Tablet PO ×2 (01:19→07:43)
[2021-01-09] MEDS: traMADol 50 MG Tablet PO ×2 (01:19→07:43)
[2021-01-09 03:23] VITALS: BP 113/72; PULSE 99; RESP 18; TEMP 36.8; O2SAT 92
[2021-01-09] MEDS: oxyCODONE 5 MG Tablet PO ×2 (05:39→10:35)
[2021-01-09] MEDS: Gabapentin 300 MG Capsule PO ×2 (05:39→14:03)
[2021-01-09] MEDS: Acetaminophen 500 MG Tablet 1000 MG PO (07:43)
[2021-01-09] MEDS: Senna/Docusate Sodium 1 Tablet 2 TABLET PO (07:43)
[2021-01-09] MEDS: Famotidine 20 MG Tablet PO (07:43)
[2021-01-09] MEDS: Nicotine Polacrilex 2 MG GUM PO (09:09)
[2021-01-09 09:15] VITALS: BP 110/75; PULSE 101; RESP 18; TEMP 37.3; O2SAT 93
[2021-01-09 09:20] LABS: Anion Gap 3 (5-15); BUN 2 mg/dL (7-18); BUN/Creat Ratio 4.9 RATIO (10-20); Calcium,Total 8.7 mg/dL (8.5-10.1); Chloride 103 mmol/L (98-107); Creatinine, Serum 0.41 mg/dL (0.55-1.02); EST Glomerular Filtration Rate 178 mL/min (>60); Est Glom Filt Rate - Afr Amer 215 mL/min (>60); Estimated Creatinine Clearance 143.34 ml/min; Glucose 83 mg/dL (74-106); Potassium 3.8 mmol/L (3.5-5.1); Sodium Level 136 mmol/L (136-145)
--- NOTE | 2021-01-09 10:49 | NURSING ---
PT WITH DEMAR ANKLE EDEMA. ABD ROUNDED, DITENDED, NO FLATUS. NEW ORDERS RECEIVED.
[2021-01-09] MEDS: Polyethylene Glycol 3350 17 GM PACKET PO (11:10)
--- NOTE | 2021-01-09 13:27 | PCM.PN.ORT ---
Objective Data Objective Data Vital Signs: Vital Signs Temp Pulse Resp BP Pulse Ox 99.2 F H 101 H 18 110/75 93 01/09/21 09:15 01/09/21 09:15 01/09/21 09:15 01/09/21 09:15 01/09/21 09:15 Oxygen Flow Rate (L/min) 1 Oxygen Delivery Method Bi-pap Weight: 138 lb 10.732 oz Body Mass Index (BMI) 24.5 Intake & Output: Intake and Output for Last 24 Hours 01/07/21 01/08/21 01/09/21 23:59 23:59 23:59 Intake Total 3243.75 / 3243.75 3869.83 / 4369.83 2459.17 / 2459.17 Output Total 500 / 500 450 / 450 1200 / 1200 Balance 2743.75 / 2743.75 3419.83 / 3919.83 1259.17 / 1259.17 Lab / Micro Data Result Diagrams: 01/08/21 09:36 01/09/21 08:18 Labs: Laboratory Results - last 24 hr 01/09/21 08:18: Sodium 136, Potassium 3.8, Chloride 103, Carbon Dioxide 30.0, Anion Gap 3 L, BUN 2 L, Creatinine 0.41 L, Estim Creat Clear Calc 143.34, Est GFR (MDRD) Af Amer 215, Est GFR (MDRD) Non-Af 178, BUN/Creatinine Ratio 4.9 L, Glucose 83, Calcium 8.7 Micro: Microbiology 01/04/21 09:45 Interface Orders SARS-CoV-2 Antigen (Rapid) - Final 12/28/20 09:36 Swab (Method) Nasal Screen MRSA/MSSA - Final
--- NOTE | 2021-01-09 13:38 | PCM.DC ---
Discharge Instructions Follow Up Care Test Results: Test results from this visit will be discussed in further detail at your follow-up appointment, if applicable. Discharge Plan Admission Admit Date/Time: 01/05/21 05:21 Primary Reason for Your Visit: surgery Attending Provider: Jesus Agee Primary Care Provider: Anya Nieves Consulting Providers: George Mcclendon Discharge Orders/Prescriptions Prescriptions: No Action trazodone 50 MG tablet 100 mg PO QHS RF: 0 tizanidine [Zanaflex] 4 MG tablet 4 mg PO Q8H RF: 0 oxycodone-acetaminophen 1 TABLET tablet 2 tab PO Q6H PRN PRN (Reason: Pain) RF: 0 lamotrigine [Lamictal] 150 mg Tablet 150 mg PO QHS RF: 0 hydroxyzine pamoate [Vistaril] 25 mg Capsule 25 mg PO BID PRN (Reason: Anxiety) RF: 0 gabapentin 300 mg Tablet 300 mg PO TID RF: 0 oxycodone-acetaminophen 7.5-325 mg tablet 1 tab PO Q6H PRN (Reason: pain) 10 Days Qty: 40 RF: 0 Referrals / Follow Up: Anya Nieves MD [Primary Care Provider] - Disposition Disposition (needs filled in before D/C Order can be placed): Home, Self Care
--- NOTE | 2021-01-09 13:40 | PCM.DC.SUM ---
Providers Date of Admission: 01/05/21 Primary Care Physician: Dr. Anya Nieves MD Consultations 01/05/21 16:42 Consult: Hospitalist Routine Consulting Provider: George Mcclendon Reason for Consult: Medical Management EMERGENT Consult: No MD Notified: Yes Date Notified: 01/05/21 Time Notified: 17:25 Method of Notification: Text Reason For Visit: ALIF/PLIF 360 Diagnosis Discharge Diagnosis (1) DDD (degenerative disc disease), lumbar: Status: Acute Code(s): M51.36 - Other intervertebral disc degeneration, lumbar region Medications at Discharge Home Medications oxycodone-acetaminophen 2 tab PO Q6H PRN PRN 03/01/13 tizanidine [Zanaflex] 4 mg PO Q8H 03/01/13 trazodone 100 mg PO QHS 03/01/13 lamotrigine [Lamictal] 150 mg PO QHS 09/03/20 gabapentin 300 mg PO TID 11/18/20 hydroxyzine pamoate [Vistaril] 25 mg PO BID PRN 11/18/20 oxycodone-acetaminophen 7.5 mg-325 mg tablet 1 tab PO Q6H PRN 10 Days #40 tab 01/08/21 Hospital Course Summary of Care Provided Hospital Course: This is Dr. Agee dictating discharge summary on [facility]. This patient was admitted on January 05, 2021 is being discharged on January 09, 2021. Date of admission she underwent 360 degree fusion at the L5-S1 level. She has tolerated the procedure well. Hospital course was unremarkable. She had the usual ileus which is expected in all patients. Thus we do not call this a complication. At discharge her dressings are both dry. She was given specific directions to remove the dressings on both the front and the back tomorrow and she is to shower on Monday. She can start eating solid foods today. She was given oxycodone for pain. She has an appointment in my office on the of this month. This is the end of discharge summary on [facility]. This is Dr. Agee dictating. Weight / BMI Weight Weight: 138 lb 10.732 oz Body Mass Index (BMI) 24.5 ABG / Lab / Microbiology Data Result Diagrams: 01/08/21 09:36 01/09/21 08:18 Laboratory: Laboratory Results - last 24 hr 01/09/21 08:18: Sodium 136, Potassium 3.8, Chloride 103, Carbon Dioxide 30.0, Anion Gap 3 L, BUN 2 L, Creatinine 0.41 L, Estim Creat Clear Calc 143.34, Est GFR (MDRD) Af Amer 215, Est GFR (MDRD) Non-Af 178, BUN/Creatinine Ratio 4.9 L, Glucose 83, Calcium 8.7 Microbiology: Microbiology 01/04/21 09:45 Interface Orders SARS-CoV-2 Antigen (Rapid) - Final 12/28/20 09:36 Swab (Method) Nasal Screen MRSA/MSSA - Final Meaningful Use Info Meaningful Use Diagnoses (Choose all that apply): None applicable Discharge Plan Admission Admit Date/Time: 01/05/21 05:21 Primary Reason for Your Visit: surgery Attending Provider: Jesus Agee Primary Care Provider: Anya Nieves Consulting Providers: George Mcclendon Discharge Orders/Prescriptions Prescriptions: No Action trazodone 50 MG tablet 100 mg PO QHS RF: 0 tizanidine [Zanaflex] 4 MG tablet 4 mg PO Q8H RF: 0 oxycodone-acetaminophen 1 TABLET tablet 2 tab PO Q6H PRN PRN (Reason: Pain) RF: 0 lamotrigine [Lamictal] 150 mg Tablet 150 mg PO QHS RF: 0 hydroxyzine pamoate [Vistaril] 25 mg Capsule 25 mg PO BID PRN (Reason: Anxiety) RF: 0 gabapentin 300 mg Tablet 300 mg PO TID RF: 0 oxycodone-acetaminophen 7.5-325 mg tablet 1 tab PO Q6H PRN (Reason: pain) 10 Days Qty: 40 RF: 0 Referrals / Follow Up: Anya Nieves MD [Primary Care Provider] - Disposition Disposition (needs filled in before D/C Order can be placed): Home, Self Care
[2021-01-09 14:04] VITALS: BP 117/75; PULSE 95; RESP 18; TEMP 37.1; O2SAT 92
[2021-01-09 14:07] VITALS: BP 117/75; PULSE 95; RESP 18; TEMP 37.1; O2SAT 92
== END 2021-01-09 14:07 | disposition home or self-care (01) | DRG 454 ==
LOC: ACINP 09:44 → MS3 16:56
PROVIDERS: Anesthesiology; Family Medicine; Admitting Provider Orthopaedic Surgery; PCP Internal Medicine; Referring Provider Orthopaedic Surgery; Visit Provider Orthopaedic Surgery
PROC: 0SG00A0 Fusion of Lumbar Vertebral Joint with Interbody Fusion Device, Anterior Approach, Anterior Column, Open Approach (ICD-10-PCS; principal; 2021-01-05 07:00)
DX: M51.36 Other intervertebral disc degeneration, lumbar region (principal); K56.7 Ileus, unspecified; F17.200 Nicotine dependence, unspecified, uncomplicated; F41.9 Anxiety disorder, unspecified; F32.9 Major depressive disorder, single episode, unspecified; Z79.899 Other long term (current) drug therapy; G89.29 Other chronic pain
CPT/HCPCS: 36415; 72020; 80048; 80076; 82962; 83735; 84100; 85025; 85610; 85730; 86703; 86706; 86708; 86803; 87081; 87426; 93005; 97162; 97530; 97802; 97803; 99251; 99406; C1713; C9803; J7120; A4216; G0463; J2405; J3475

== ENCOUNTER 2021-01-16 21:03 | Emergency (ER) | payer OTHER, SELFPAY ==
[2021-01-16 21:04] VITALS: BP 98/58; PULSE 114; RESP 20; TEMP 36.1; BMI 24.0
[2021-01-16] MEDS: 0.9% Normal Saline 1,000 ML 999 ML IV (23:38)
[2021-01-16] MEDS: Ondansetron 4 MG/2 ML Vial IV (23:39)
[2021-01-16] MEDS: HYDROmorphone 1 MG/ML Syringe IV (23:39)
[2021-01-17 00:17] LABS: Absolute Lymphocyte Count 2.54 X10^3/uL (0.83-4.51); Absolute Neutrophil Count 6.9 X10^3/uL (2.0-7.7); Basophil# 0.07 X10^3/uL; Basophil% 0.7 % (0-1); Eosinophil# 0.13 X10^3/uL; Eosinophils% 1.3 % (0-5); Hematocrit 34.2 % (37-47); Hemoglobin 10.9 g/dL (12.0-15.0); Lymphocyte # 2.54 X10^3/ul (0.83-4.51); Mean Corp Hgb Conc 31.9 g/dL (32-36); Mean Corpuscular Hgb 31.1 pg (27.0-32.0); Mean Corpuscular Volume 97.7 fL (81-99); Mean Platelet Vol. 9.6 fl (6.2-12.0); Monocyte# 0.54 X10^3/uL; Monocyte% 5.3 % (0-10); NRBC Flagged by Analyzer 0 % (0-5); Neutrophil # 6.85 X10^3/uL (2.7-7.7); Neutrophil % 67.3 % (47-70); Platelet Count 558 K/mm3 (150-450); RBC Distribution Width CV 13.2 % (11.6-14.6); RBC Distribution Width SD 46.5 fl (35.1-43.9); White Blood Count 10.2 K/mm3 (4.4-11.0)
[2021-01-17 00:31] LABS: Erythrocyte Sedimentation Rate 26 mm/hr (0-30)
[2021-01-17 00:44] VITALS: BP 134/89; PULSE 72; RESP 16; O2SAT 97
[2021-01-17] MEDS: HYDROmorphone 1 MG/ML Syringe IV (01:00)
[2021-01-17 01:34] LABS: Anion Gap 5 (5-15); BUN 6 mg/dL (7-18); BUN/Creat Ratio 15.3 RATIO (10-20); CRP 7.55 mg/L (0.0-3.0); Calcium,Total 7.6 mg/dL (8.5-10.1); Chloride 112 mmol/L (98-107); Creatinine, Serum 0.39 mg/dL (0.55-1.02); EST Glomerular Filtration Rate 187 mL/min (>60); Est Glom Filt Rate - Afr Amer 226 mL/min (>60); Estimated Creatinine Clearance 150.69 ml/min; Glucose 83 mg/dL (74-106); Potassium 3.7 mmol/L (3.5-5.1); Sodium Level 141 mmol/L (136-145)
[2021-01-17 01:35] LABS: Lactic Acid 0.7 mmol/L (0.4-1.9)
[2021-01-17 01:48] LABS: Bacteria 0 SEEN /hpf (None Seen); Mucous, Urine 0 SEEN /hpf (<or=2+); Red Blood Cells-Urine 0 SEEN /hpf (0-5); White Blood Cells 0 SEEN /hpf (0-5)
[2021-01-17 01:53] LABS: Color, Urine Yellow (Yellow); Glucose, Dipstick Normal (Normal); Ketone-Dipstick Negative (Negative); Leukocyte Esterase-Dipstick 25 /ul (Negative); Nitrite-Dipstick Negative (Negative); Occult Blood-Urine Negative /ul (Negative); Protein-Dipstick 30 mg/dl (Negative); Urine Bilirubin Dipstick Negative (Negative); Urine Clarity Sl. Cloudy (Clear); Urine Urobilinogen Normal (Normal); Urine pH 6.5 (5.0 - 8.0)
[2021-01-17 02:09] LABS: Renal Epithelial Cells 0-5 SEEN /hpf (0-5); Squamous Epithelial Cells - UA 10-25 SEEN /hpf (5-10)
[2021-01-17 02:48] VITALS: BP 119/80; PULSE 71; RESP 18; O2SAT 99
--- NOTE | 2021-01-17 03:05 | EX.ED.DYSGE1 ---
HPI History of Present Illness Chief Complaint: Abd Pain Narrative Narrative: Patient is a 45-year-old female who states she had back surgery approximately 10 to 12 days ago. She states she has been taking Percocet every 6 hours as well as Valium and gabapentin. She states this by doing this she feels that he has been having increased pain over the past few days. She denies any trauma. She denies any fevers or chills. She states has been no dysuria or hematuria and she denies any loss of bowel or bladder control. She states she talked to her orthopedic surgeon and with her worsening symptoms was advised to come to the hospital for evaluation [facility] Medical History Anxiety Broken teeth Chronic pain Depression Easy bruising History of stress test Numbness and tingling of left leg Restless legs Smoker Status post insertion of nerve stimulator Wears contact lenses Wears glasses Home Medications trazodone 100 mg PO QHS 03/01/13 [History Last Taken Unknown] lamotrigine [Lamictal] 150 mg PO QHS 09/03/20 [History Last Taken Unknown] gabapentin 300 mg PO TID 11/18/20 [History Last Taken Unknown] hydroxyzine pamoate [Vistaril] 25 mg PO BID PRN 11/18/20 [History Last Taken Unknown] oxycodone-acetaminophen 7.5 mg-325 mg tablet 1 tab PO Q6H PRN 10 Days #40 tab 01/08/21 [Rx Last Taken Unknown] diazepam 5 mg tablet 5 mg PO TID PRN 10 Days #30 tab 01/12/21 [Rx Last Taken Unknown] fentanyl 1 patch TRANSDERMAL Q72H 15 Days #5 ea 01/17/21 [Rx Last Taken Unknown] Allergy/AdvReac Type Severity Reaction Status Date / Time morphine Allergy Severe Itching Verified 01/05/21 05:33 meperidine AdvReac Intermediate Other Verified 01/05/21 05:33 adhesive AdvReac Rash Verified 01/05/21 05:33 Surgical History (Updated 12/22/20 @ 08:59 by Lissette Ng) History of back surgery History of spinal surgery History of surgery Hx of hysterectomy Social History Smoking Status: Heavy Smoker (>10/day) ROS ROS ED Constitutional Constitutional ED: Denies chills or fever(s) ENT ENT ED: Denies sore throat Cardiovascular Cardiovascular: Denies chest pain Respiratory/Chest Respiratory/Chest: Denies cough or dyspnea Gastrointestinal Gastrointestinal: Denies abdominal pain, diarrhea, nausea or vomiting Genitourinary Genitourinary ED: Denies dysuria or hematuria Musculoskeletal Musculoskeletal: Reports back pain; Denies myalgias Integumentary Denies rash Neurologic Neurologic: Denies headache(s) Hematologic/Lymphatic Hematologic/Lymphatic: Denies easy bleeding or easy bruising EXAM Physical Exam Const Vital Signs: 01/16/21 21:04 01/17/21 00:44 01/17/21 02:48 Temperature 97.0 F L Temperature Source Temporal Pulse Rate 114 H 72 71 Respiratory Rate 20 H 16 18 Blood Pressure 98/58 L 134/89 H 119/80 Blood Pressure Mean 71 104 93 Pulse Ox 97 99 Oxygen Delivery Method Room Air Room Air Positive well nourished and well developed General Appearance ED: well developed HEENT Negative for trauma Eyes PERRL and EOMs intact bilaterally Neck supple Resp normal respiratory effort and clear to auscultation bilaterally Cardio regular rate and regular rhythm GI normal to inspection, nondistended, normoactive bowel sounds, non-tender and non-distended GI Narrative: No voluntary guarding no rigidity no pulsatile mass. No tympany noted. Patient does have a postsurgical scar to the left lower quadrant of the abdomen as well and that is clean dry and intact Auscultation: normoactive bowel sounds Palpation: soft Back/Spine Back/Spine Narrative: Patient has a surgical incision to the lower thoracic/lumbar spine that is clean dry and intact without secondary changes to suggest infection. No saddle anesthesia is noted. No clonus or Babinski. Patellar reflexes are plus 2 out of 4 bilaterally. Straight leg raise negative Extremity normal to inspection Neuro oriented x3 and CN's II-XII intact bilaterally Sensorium / Orientation: alert Psych mental status grossly normal Skin no rashes or lesions noted Skin Narrative: Postsurgical changes to the abdomen and back as documented above MDM MDM MDM Narrative Medical decision making narrative: Patient presented to the ER afebrile. She did not have secondary soft tissue changes to suggest infection on exam. However with her timeframe away from surgery and worsening pain I discussed the case with her surgeon. He agrees that we should perform basic laboratory studies as well as imaging to rule out underlying infectious process as the cause of her worsening pain. Labs revealed no leukocytosis lactic acidosis or left shift. CT scan showed some fluid/inflammatory change around the spine most consistent with postsurgical changes. However it stated it cannot 100% rule out infection. However patient is afebrile with no white count or lactic acidosis or left shift and therefore clinically this fits that these changes on CT scan are postoperative. After these results I did discuss the case with the orthopedic surgeon once again. He agrees that this is most consistent with postoperative changes. On reevaluation the patient does report improvement of her symptoms. Therefore at this time with negative work-up I do not feel there is need to place her in the hospital. I will place her on a fentanyl patch to help control her pain better and she can continue the medication she is currently on for any type of breakthrough pain. However at this time as there is no signs of cauda equina or epidural abscess or systemic infection I believe she is safe for discharge Lab Data Labs: Laboratory Results - last 24 hr 01/16/21 01/16/21 01/16/21 23:34 23:34 23:34 WBC 10.2 RBC 3.50 L Hgb 10.9 L Hct 34.2 L MCV 97.7 MCH 31.1 MCHC 31.9 L RDW Std Deviation 46.5 H RDW Coeff of Cecille 13.2 Plt Count 558 H MPV 9.6 Immature Gran % (Auto) 0.400 Neut % (Auto) 67.3 Lymph % (Auto) 25.0 Bollinger % (Auto) 5.3 Eos % (Auto) 1.3 Baso % (Auto) 0.7 Absolute Neuts (auto) 6.9 Absolute Lymphs (auto) 2.54 Nucleated RBC % 0 ESR 26 Sodium Cancelled Potassium Cancelled Chloride Cancelled Carbon Dioxide Cancelled Anion Gap Cancelled BUN Cancelled Creatinine Cancelled Estim Creat Clear Calc Cancelled Est GFR (MDRD) Af Amer Cancelled Est GFR (MDRD) Non-Af Cancelled BUN/Creatinine Ratio Cancelled Glucose Cancelled Lactic Acid Cancelled Calcium Cancelled C-React Prot Ext Range Cancelled Urine Color Urine Clarity Urine pH Ur Specific [place] Urine Protein Urine Glucose (UA) Urine Ketones Urine Occult Blood Urine Nitrite Urine Bilirubin Urine Urobilinogen Ur Leukocyte Esterase Urine RBC Urine WBC Ur Squamous Epith Cells Ur Renal Epithelial Cell Urine Bacteria Urine Mucus 01/17/21 01/17/21 01/17/21 01:00 01:00 01:41 WBC RBC Hgb Hct MCV MCH MCHC RDW Std Deviation RDW Coeff of Cecille Plt Count MPV Immature Gran % (Auto) Neut % (Auto) Lymph % (Auto) Bollinger % (Auto) Eos % (Auto) Baso % (Auto) Absolute Neuts (auto) Absolute Lymphs (auto) Nucleated RBC % ESR Sodium 141 Potassium 3.7 Chloride 112 H Carbon Dioxide 24.0 Anion Gap 5 BUN 6 L Creatinine 0.39 L Estim Creat Clear Calc 150.69 Est GFR (MDRD) Af Amer 226 Est GFR (MDRD) Non-Af 187 BUN/Creatinine Ratio 15.3 Glucose 83 Lactic Acid 0.7 Calcium 7.6 L C-React Prot Ext Range 7.55 H Urine Color Yellow Urine Clarity Sl. Cloudy Urine pH 6.5 Ur Specific [place] 1.010 Urine Protein 30 H Urine Glucose (UA) Normal Urine Ketones Negative Urine Occult Blood Negative Urine Nitrite Negative Urine Bilirubin Negative Urine Urobilinogen Normal Ur Leukocyte Esterase 25 H Urine RBC 0 SEEN Urine WBC 0 SEEN Ur Squamous Epith Cells 10-25 SEEN Ur Renal Epithelial Cell 0-5 SEEN Urine Bacteria 0 SEEN Urine Mucus 0 SEEN Radiography Diagnostic Testing: Radiology Impression Lumbar Spine CT 01/17/21 22:58 IMPRESSION: Small fluid collection surrounding the transverse process at L4 and interspinous region at L4-L5 with mild fluid in the left paraspinal region and single punctate air which suggests nonspecific inflammatory process which may be due to recent surgery, cannot exclude infection. Recommend follow-up with MRI with intravenous contrast if clinical symptoms do not improve or repeat CT examination to exclude future development of abscess formation. Postoperative changes as described, remainder of the exam unremarkable. Electronically Signed: Mercy Dubose MD at 1:31 EDT , Service support , Discharge Plan Triage Chief Complaint: Abd Pain ED Provider: Wild Chávez Dx/Rx/DC Orders Clinical Impression: Post-operative pain Instructions: Pain Management After Surgery Prescriptions: New fentanyl 50 mcg/hr patch 72 hour 1 patch transdermal Q72H 15 Days Qty: 5 RF: 0 No Action trazodone 50 MG tablet 100 mg PO QHS RF: 0 lamotrigine [Lamictal] 150 mg Tablet 150 mg PO QHS RF: 0 hydroxyzine pamoate [Vistaril] 25 mg Capsule 25 mg PO BID PRN (Reason: Anxiety) RF: 0 gabapentin 300 mg Tablet 300 mg PO TID RF: 0 oxycodone-acetaminophen 7.5-325 mg tablet 1 tab PO Q6H PRN (Reason: pain) 10 Days Qty: 40 RF: 0 diazepam [Valium] 5 mg tablet 5 mg PO TID PRN (Reason: anxiety) 10 Days Qty: 30 RF: 0 Primary Care Provider: Anya Nieves Referrals: Anya Nieves MD [Primary Care Provider] - Jesus Agee DO [STAFF PHYSICIAN] - 2 Days Disposition Disposition: Home, Self Care
[2021-01-17] MEDS: oxyCODONE 5 MG Tablet 10 MG PO (03:54)
[2021-01-17 03:57] VITALS: PULSE 65; RESP 16; O2SAT 97
--- NOTE | 2021-01-17 22:58 | CT_ITS ---
STUDY: CT LUMBAR SPINE WITH CONTRAST REASON FOR EXAM: Female, 45 years old. post op back pain RADIATION DOSAGE (If Supplied By Facility): CTDIvol = ( 11.69 ) mGy, DLP = ( 442.03 ) mGycm TECHNIQUE: The patient was scanned in a multi detector CT scanner. High resolution transaxial imaging was performed following the intravenous administration of intravenous contrast. Images were obtained from T10-T11 to S5. Sagittal and coronal images were reconstructed. Individualized dose optimization techniques were used for this CT. COMPARISON: None FINDINGS: Normal lumbar lordosis. There is no substantial scoliosis. Normal alignment of the lumbar vertebral bodies. The patient is status post anterior fusion at the L4-L5 with disc prosthesis at L4-L5 and L5-S1. The patient is status post posterior laminectomy at L5. Otherwise normal vertebrae of the lumbar spine. There is no demonstrated compression deformity or fracture of the visualized lumbar vertebrae. There is nonspecific soft tissue swelling with small amount of fluid along the transverse process of L4 with punctate air along the left paraspinal region, combination of findings consistent with nonspecific inflammatory process. There are 2 intrathecal catheter is in place. L1-2: Normal endplates. Normal disc height and morphology. Normal bilateral facet joints. Normal central canal and bilateral lateral recesses. Normal bilateral intervertebral neural foramina. L2-3: Normal endplates. Normal disc height and morphology. Normal bilateral facet joints. Normal central canal and bilateral lateral recesses. Normal bilateral intervertebral neural foramina. L3-4: Normal endplates. Normal disc height and morphology. Normal bilateral facet joints. Normal central canal and bilateral lateral recesses. Normal bilateral intervertebral neural foramina. L4-5: Limited visualization due to surgical changes in beam hardening artifact. L5-S1: Status post laminectomy at L5 with otherwise limited visualization of the thecal sac. Posterior paraspinal nonspecific inflammatory changes seen. Normal visualized paraspinous soft tissue structures. CT/Spine Lumbar WITH Contrast IMPRESSION: Small fluid collection surrounding the transverse process at L4 and interspinous region at L4-L5 with mild fluid in the left paraspinal region and single punctate air which suggests nonspecific inflammatory process which may be due to recent surgery, cannot exclude infection. Recommend follow-up with MRI with intravenous contrast if clinical symptoms do not improve or repeat CT examination to exclude future development of abscess formation. Postoperative changes as described, remainder of the exam unremarkable. Electronically Signed: Mercy Dubose MD at 1:31 EDT , Service support ,
== END 2021-01-17 03:58 | disposition home or self-care (01) ==
PROVIDERS: Emergency Provider Emergency Medicine; PCP Internal Medicine
DX: G89.18 Other acute postprocedural pain (principal); R10.9 Unspecified abdominal pain; F17.200 Nicotine dependence, unspecified, uncomplicated; F32.9 Major depressive disorder, single episode, unspecified; F41.9 Anxiety disorder, unspecified; Z79.899 Other long term (current) drug therapy
CPT/HCPCS: 72132; 80048; 81001; 83605; 85025; 85652; 86140; 96374; 96375; 96376; 99284; J7030; Q9967; A4216; J2405

== ENCOUNTER → 2021-01-20 12:20 | Emergency (ER) | payer OTHER, SELFPAY ==
[2021-01-20 12:22] VITALS: BP 111/72; PULSE 90; RESP 16; TEMP 36.4; O2SAT 99; BMI 25.2
--- NOTE | 2021-01-20 12:43 | VDLE_ITS ---
Reason For Study: Swelling Procedure LEFT This is a venous duplex using B-mode, color GSV is normal. flow and spectral Doppler. CFV is compressible, spontaneous, phasic, Exam performed portable in ED. competent, and demonstrates normal A preliminary report was called and/or faxed augmentation. to Dr. Noble. FV is compressible, spontaneous, phasic, competent and demonstrates normal augmentation. POP V is compressible, spontaneous, phasic, competent and demonstrates normal augmentation. T/P Trunk is compressible. PTV is compressible. LT PerV is compressible. VL/Venous Duplex US, Unilateral Interpretation Summary Deep veins of the left lower extremity are patent and compressible segmentally. There is no evidence of left lower extremity deep vein thrombosis. Valvular competence appears intac t within the proximal deep venous system on the left . The left great saphenous vein appears patent a nd compressible segmentally. Ordering Physician: Kei Noble Referring Physician: Lizbeth Joyner Performed By: Nilda Deal, KEVINCS, RVT
--- NOTE | 2021-01-20 13:40 | EDS_ITS ---
HPI History of Present Illness Chief Complaint: Lower Extremity Injury Informant: patient and spouse/S.O. Narrative Narrative: Patient is referred in here by her surgeon for possible DVT of left lower extremity. Patient had a 360 degree spinal fusion on 05 January. Patient states she has had swelling of her left leg ever since surgery. She was told it was likely due to the surgery, potential stress on the nerves and fluids. It did go down somewhat but never resolved. She was in with more pain over the weekend and got fluids and the swelling went up a little bit. It is now going down again. She states before surgery she had some tingling and occasional weakness of the left leg. The tingling is better. She still states the left leg does not seem as strong. But she has been out walking. Swelling is mostly in the ankle and foot. Nothing specifically makes it better and worse. She has no fevers or chills. The wounds are healing well. Her back is doing well. She is not having chest pain or shortness of breath. She has never had a DVT or PE. [facility] Medical History Anxiety Broken teeth Chronic pain Depression Easy bruising History of stress test Numbness and tingling of left leg Restless legs Smoker Status post insertion of nerve stimulator Wears contact lenses Wears glasses Home Medications trazodone 100 mg PO QHS 03/01/13 [History Last Taken Unknown] lamotrigine [Lamictal] 150 mg PO QHS 09/03/20 [History Last Taken Unknown] gabapentin 300 mg PO TID 11/18/20 [History Last Taken Unknown] hydroxyzine pamoate [Vistaril] 25 mg PO BID PRN 11/18/20 [History Last Taken Unknown] diazepam 5 mg tablet 5 mg PO TID PRN 10 Days #30 tab 01/12/21 [Rx Last Taken Unknown] fentanyl 1 patch TRANSDERMAL Q72H 15 Days #5 ea 01/17/21 [Rx Last Taken Unknown] diazepam 5 mg tablet 5 mg PO TID PRN 10 Days #30 tab 01/18/21 [Rx Last Taken Unknown] gabapentin 300 mg capsule 300 mg PO BID 15 Days #30 cap 01/18/21 [Rx Last Taken Unknown] oxycodone-acetaminophen 7.5 mg-325 mg tablet 1 tab PO PRN tab 01/18/21 [History Last Taken Unknown] oxycodone-acetaminophen 7.5 mg-325 mg tablet 1 tab PO Q6H PRN 10 Days #40 tab 01/18/21 [Rx Last Taken Unknown] tizanidine 4 mg tablet 4 mg PO PRN tab 01/18/21 [History Last Taken Unknown] Allergy/AdvReac Type Severity Reaction Status Date / Time morphine Allergy Severe Itching Verified 01/18/21 08:10 meperidine AdvReac Intermediate Other Verified 01/18/21 08:10 adhesive AdvReac Rash Verified 01/18/21 08:10 Surgical History History of back surgery History of spinal surgery History of surgery Hx of hysterectomy Social History Smoking Status: Heavy Smoker (>10/day) ROS ROS ED Constitutional Constitutional ED: Denies fever(s) or subjective ENT ENT ED: Denies rhinorrhea Cardiovascular Cardiovascular: Denies chest pain, orthopnea, palpitations, paroxysmal nocturnal dyspnea or racing heartbeat Respiratory/Chest Respiratory/Chest: Denies cough, dyspnea, dyspnea on exertion, orthopnea, paroxysmal nocturnal dyspnea or sputum Gastrointestinal Gastrointestinal: Denies abdominal pain, nausea or vomiting Genitourinary Genitourinary ED: Denies dysuria or hematuria Musculoskeletal Musculoskeletal: Reports back pain and other Details: Back pain is slowly improving postoperatively. See history of present illness also. Integumentary Denies rash Neurologic Neurologic: Reports other Details: See history of present illness. ; Denies headache(s) or paresthesias Psychiatric Psychiatric: Denies depression Endocrine Endocrinology: Denies polyuria Allergic/Immunologic Allergic/Immunologic ED: Denies urticaria EXAM Physical Exam Const Vital Signs: 01/20/21 12:22 Temperature 97.6 F L Temperature Source Temporal Pulse Rate 90 Respiratory Rate 16 Blood Pressure 111/72 Blood Pressure Mean 85 Pulse Ox 99 Oxygen Delivery Method Room Air Positive well nourished and well developed General Appearance ED: well developed and NAD HEENT Reports moist mucous membranes Eyes General Eye ED: Negative for pale conjunctiva Neck no JVD Chest Wall inspection of chest normal Resp normal respiratory effort and clear to auscultation bilaterally Effort and Inspection: Negative for pain with movement Cardio regular rate, regular rhythm and no murmurs GI normal to inspection, nondistended, normoactive bowel sounds and non-tender GI Narrative: Incision lower abdomen looks like it is healing quite well. There is no erythema. No herniation. Palpation: soft Back/Spine no CVA tenderness Back/Spine Narrative: Back had dory removed already. Incision is Steri- Stripped. It looks quite good. There is no erythema or drainage at all. No sign of infection. Extremity Extremity Narrative: Patient's left leg does have a little bit of swelling at the ankle and foot area. General Extremety ED: Negative for tenderness Neuro oriented x3 Neuro Narrative: Strength is still intact in lower extremities. Sensorium / Orientation: alert Psych mental status grossly normal Skin no rashes or lesions noted Skin Narrative: See above. MDM MDM MDM Narrative Medical decision making narrative: Ultrasound does not show any sign of DVT. I have placed a call to Dr. Agee to let him know as the patient had called prior to coming in here. At this point I am not 100% sure what the cause of her symptoms are. This could be possible early presentation of a complex regional pain syndrome. I was able to speak with Dr. Agee. Patient will follow up as an outpatient. Discharge Plan Triage Chief Complaint: Lower Extremity Injury ED Provider: Kei Noble Dx/Rx/DC Orders Clinical Impression: Swelling of left foot Instructions: ED Lymphedema Prescriptions: No Action oxycodone-acetaminophen 7.5-325 mg tablet 1 tab PO PRNRF: 0 tizanidine 4 mg tablet 4 mg PO PRNRF: 0 oxycodone-acetaminophen 7.5-325 mg tablet 1 tab PO Q6H PRN (Reason: pain) 10 Days Qty: 40 RF: 0 diazepam [Valium] 5 mg tablet 5 mg PO TID PRN (Reason: anxiety) 10 Days Qty: 30 RF: 0 gabapentin 300 mg capsule 300 mg PO BID 15 Days Qty: 30 RF: 0 trazodone 50 MG tablet 100 mg PO QHS RF: 0 lamotrigine [Lamictal] 150 mg Tablet 150 mg PO QHS RF: 0 hydroxyzine pamoate [Vistaril] 25 mg Capsule 25 mg PO BID PRN (Reason: Anxiety) RF: 0 gabapentin 300 mg Tablet 300 mg PO TID RF: 0 fentanyl 50 mcg/hr patch 72 hour 1 patch transdermal Q72H 15 Days Qty: 5 RF: 0 diazepam [Valium] 5 mg tablet 5 mg PO TID PRN (Reason: anxiety) 10 Days Qty: 30 RF: 0 Primary Care Provider: Anya Nieves Referrals: Anya Nieves MD [Primary Care Provider] - Jesus Agee DO [STAFF PHYSICIAN] - Keep [facility] appointment Disposition Disposition: Home, Self Care
--- NOTE | 2021-01-20 15:00 | NURSING ---
DR ELDER PAGED
== END | disposition home or self-care (01) ==
PROVIDERS: Emergency Provider Emergency Medicine; PCP Internal Medicine
DX: M79.89 Other specified soft tissue disorders (principal); F17.200 Nicotine dependence, unspecified, uncomplicated; Z98.1 Arthrodesis status
CPT/HCPCS: 93971; 99282

== ENCOUNTER → 2021-12-22 | Outpatient (CLI) | payer OTHER, SELFPAY ==
[2021-12-22 14:47] LABS: Amphetamine Urine VISTA NEGATIVE (<1000 ng/mL); Barbiturate Urine VISTA NEGATIVE (< 200 ng/mL); Benzodiazepine Urine VISTA NEGATIVE (< 200 ng/mL); Cocaine Urine VISTA NEGATIVE (< 300 ng/mL); Ecstacy Urine VISTA NEGATIVE (< 500 ng/mL); Methadone Urine VISTA NEGATIVE (< 300 ng/mL); PCP Urine VISTA NEGATIVE (< 25 ng/mL); THC Urine VISTA NEGATIVE (< 50 ng/mL); Vista UDS pH Range 6
== END | disposition home or self-care (01) ==
PROVIDERS: PCP Internal Medicine; Referring Provider Anesthesiology Pain Medicine; Visit Provider Anesthesiology Pain Medicine
DX: F11.20 Opioid dependence, uncomplicated (principal)
CPT/HCPCS: 80307

== ENCOUNTER → 2023-09-06 | Outpatient (CLI) | payer OTHER, SELFPAY ==
[2023-09-06 11:22] LABS: OXY Internal Control LINE = VALID (VALID); Oxycodone Drug Screen Positive (<100 ng/mL)
[2023-09-06 11:38] LABS: Amphetamine Urine VISTA NEGATIVE (<1000 ng/mL); Barbiturate Urine VISTA NEGATIVE (< 200 ng/mL); Benzodiazepine Urine VISTA NEGATIVE (< 200 ng/mL); Cocaine Urine VISTA NEGATIVE (< 300 ng/mL); Ecstacy Urine VISTA NEGATIVE (< 500 ng/mL); Methadone Urine VISTA NEGATIVE (< 300 ng/mL); PCP Urine VISTA NEGATIVE (< 25 ng/mL); THC Urine VISTA POSITIVE (< 50 ng/mL); Vista UDS pH Range 6
== END | disposition home or self-care (01) ==
LOC: LAB 09:53
PROVIDERS: PCP Internal Medicine; Referring Provider Anesthesiology Pain Medicine; Visit Provider Anesthesiology Pain Medicine
DX: F11.20 Opioid dependence, uncomplicated (principal)
CPT/HCPCS: 80307; 80365; G0480

== ENCOUNTER → 2024-09-12 | Outpatient (CLI) | payer OTHER, SELFPAY ==
[2024-09-12 11:59] LABS: Amphetamine Urine NEGATIVE (<1000 ng/mL); Barbiturate Urine NEGATIVE (< 200 ng/mL); Benzodiazepine Urine NEGATIVE (< 200 ng/mL); Buprenorphine Urine NEGATIVE (< 200 ng/mL); Cocaine Urine NEGATIVE (< 300 ng/mL); Fentanyl, Urine NEGATIVE; Methadone Urine NEGATIVE (< 300 ng/mL); Opiates Urine NEGATIVE (< 300 ng/mL); Oxycodone, Urine PRESUMPTIVE POSITIVE (< 100 ng/mL); PCP Urine NEGATIVE (< 25 ng/mL); THC Urine PRESUMPTIVE POSITIVE (< 50 ng/mL)
== END | disposition home or self-care (01) ==
LOC: LAB 09:52
PROVIDERS: PCP Internal Medicine; Referring Provider Anesthesiology Pain Medicine; Visit Provider Anesthesiology Pain Medicine
DX: F11.20 Opioid dependence, uncomplicated (principal)
CPT/HCPCS: 80307